=== PATIENT | male | born 1965 | race African-American/Black ===

== ENCOUNTER 2017-07-11 11:28 | Emergency (ER) | payer OTHER ==
[~2017-07-11] VITALS: Ht 182.9 cm; Wt 107.0 kg
[~2017-07-11 11:28] MED LIST: FLOMAX0.4 MG PO; LEVAQUIN500 MG PO; NAPROSYN500 M1 PO; NO HOME MEDICATION XX; PERCOCET 5/3251 TAB PO; ZOFRAN4 M2 PO
== END 2017-07-11 14:08 ==
LOC: EDMED 11:28
DX: S16.1XXA Strain of muscle, fascia and tendon at neck level, initial encounter (principal); M54.5 Low back pain; R51 Headache; G43.909 Migraine, unspecified, not intractable, without status migrainosus; Z86.73 Personal history of transient ischemic attack (TIA), and cerebral infarction without residual deficits; Z79.899 Other long term (current) drug therapy; V49.40XA Driver injured in collision with unspecified motor vehicles in traffic accident, initial encounter; Y92.410 Unspecified street and highway as the place of occurrence of the external cause